=== PATIENT | female | born 1975 | race Caucasian/White ===

== ENCOUNTER 2017-02-02 23:07 | Inpatient (IN) | payer BC, OTHER ==
[2017-02-02 23:18] VITALS: BMI 42.9
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
[2017-02-03] MEDS ORDERED: IBUPROFEN 400 MG TABLET (FP) PO ONE ×3 (00:05→11:39)
[2017-02-03] MEDS ORDERED: ASPIRIN 81 MG CHEWABLE TABLETS PO ONE (00:32)
[2017-02-03 00:46] LABS: BASOPHIL 0.3 % (0-2.0); EOSINOPHIL 0.1 % (0-4.5); MCH 26.4 pg (25.7-33.7); MCHC 32.5 g/dl (32.0-36.0); MEAN CELL VOLUME 81.3 fl (80-96); MEAN PLT VOLUME 8.8 fl (7.5-11.1); NEUTROPHILS 88.7 % (42.8-82.8); PLATELET COUNT 214 K/MM3 (134-434); RDW 12.8 % (11.6-15.6); WHITE BLOOD COUNT 15.4 K/mm3 (4.0-10.0)
[2017-02-03 00:59] LABS: INR 1.08 (0.82-1.09); PROTHROMBIN TIME (PATIENT) 11.9 SEC (9.98-11.88)
[2017-02-03 01:29] LABS: ANION GAP 12 (8-16); BILIRUBIN,TOTAL 0.6 mg/dL (0.2-1.0); CALCIUM 8.9 mg/dL (8.5-10.1); CO2 29 mmol/L (21-32); COCKROFT - GAULT 119.2635; CREATININE 1.1 mg/dL (0.55-1.02); GLUCOSE,RANDOM 105 mg/dL (74-106); MAGNESIUM 2.2 mg/dL (1.8-2.4); SGOT/AST 111 U/L (15-37); SGPT/ALT 125 U/L (12-78); TOT PROT 7.7 g/dl (6.4-8.2)
[2017-02-03 01:32] LABS: ALK PHOS 193 U/L (45-117); TROPONIN I < 0.02 ng/ml (0.00-0.05)
[2017-02-03] MEDS ORDERED: POTASSIUM CHLORIDE TABS 20 MEQ TABLET.ER (FP) PO ONE ×2 (01:42→02:19)
[2017-02-03] MEDS ORDERED: SODIUM CHLORIDE 1,000 ML IV STA (01:46)
[2017-02-03] MEDS ORDERED: ASPIRIN 81 MG CHEWABLE TABLETS ONE (02:19)
[2017-02-03] MEDS ORDERED: MAGNESIUM SULF 50% (8.12 MEQ/2 ML-1 GM VIAL) IVPB ONE (03:02)
[2017-02-03] MEDS: KCL 10 MEQ IVPB 100 ML IVPB SCH ×3 (03:33→08:10)
[2017-02-03] MEDS ORDERED: MAGNESIUM SULF 50% (8.12 MEQ/2 ML-1 GM VIAL) ONE (03:33)
[2017-02-03] MEDS ORDERED: KCL 10 MEQ IVPB 100 ML IVPB ONE ×3 (03:33→07:56)
[2017-02-03 06:59] LABS: URINE APPEARANCE CLEAR; URINE BILIRUBIN NEGATIVE (NEGATIVE); URINE BLOOD NEGATIVE (NEGATIVE); URINE COLOR LTYELLOW; URINE GLUCOSE (UA) NEGATIVE (NEGATIVE); URINE KETONE NEGATIVE (NEGATIVE); URINE LEUK ESTERASE NEGATIVE (NEGATIVE); URINE NITRITE NEGATIVE (NEGATIVE); URINE PROTEIN NEGATIVE (NEGATIVE); URINE UROBILINOGEN 2.0 E.U/dl E.U./dl (0.2-1.0)
--- NOTE | 2017-02-03 13:31 | EKG ---
Test Reason : Blood Pressure : / mmHG Vent. Rate : 084 BPM Atrial Rate : 084 BPM P-R Int : 146 ms QRS Dur : 090 ms QT Int : 350 ms P-R-T Axes : 043 073 111 degrees QTc Int : 413 ms NORMAL SINUS RHYTHM POSSIBLE LEFT ATRIAL ENLARGEMENT T WAVE ABNORMALITY, CONSIDER INFEROLATERAL ISCHEMIA ABNORMAL ECG WHEN COMPARED WITH ECG OF 24-JAN-2014 10:43, T WAVE INVERSION NOW EVIDENT IN LATERAL LEADS VENT. RATE HAS INCREASED Confirmed by NASH VAUGHAN MD ([id number]) on 02/03/2017 1:31:36 PM Referred By: Confirmed By:NASH VAUGHAN MD
[2017-02-03] MEDS ORDERED: ACETAMINOPHEN 500 MG TABLET (FP) PO ONE (17:26)
[2017-02-03] MEDS ORDERED: AMPICILLIN NA/SULBACTAM NA 3 GM in SODIUM CHLORIDE 100 ML IVPB STA (17:27)
[2017-02-03] MEDS ORDERED: DEXAMETHASONE SOD PHOSPHATE 10 MG/1 ML VIAL IVPB ONE (17:33)
[2017-02-03] MEDS ORDERED: ACETAMINOPHEN 325 MG TABLET (FP) ONE (18:00)
[2017-02-03] MEDS ORDERED: DEXAMETHASONE SOD PHOSPHATE 10 MG/1 ML VIAL ONE (18:00)
[2017-02-03] MEDS ORDERED: ONDANSETRON 4 MG/2 ML VIAL IVPB PRN (18:10)
[2017-02-03] MEDS: KETOROLAC TROMETHAMINE 30 MG/1 ML VIAL IVPUSH SCH (18:38)
[2017-02-03] MEDS: AMPICILLIN NA/SULBACTAM NA 3 GM in SODIUM CHLORIDE 100 ML IVPB SCH ×2 (18:38→23:30)
[2017-02-03] MEDS: DEXTROSE 5%-NORMAL SALINE 1,000 ML IV SCH (18:39)
--- NOTE | 2017-02-03 18:58 | CON.GI ---
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 She is admitted with severe streptococcus infection of the pharynx. - History Source History Provided By: Patient - Past Medical History ...LMP: 11/10/15 - Alcohol/Substance Use Hx Alcohol Use: No - Smoking History Smoking history: Former smoker Have you smoked in the past 12 months: Yes Aproximately how many cigarettes per day: 10 Home Medications - Allergies Allergies/Adverse Reactions: Allergies Allergy/AdvReac Type Severity Reaction Status Date / Time No Known Allergies Allergy Verified 07/07/16 12:51 - Home Medications Home Medications: Ambulatory Orders Methotrexate [Mexate -] 2.5 mg PO BID 01/24/14 Zolpidem Tartrate [Ambien] 10 mg PO HS 01/24/14 Folic Acid 1 mg PO DAILY 11/25/15 Oxycodone HCl/Acetaminophen [Percocet 10-325 mg Tablet] 1 - 2 tab PO TID PRN # 10 tablet 11/25/15 Physical Exam-GI Vital Signs: Vital Signs Temperature 98.1 F 02/03/17 12:07 Pulse Rate 70 02/03/17 12:07 Respiratory Rate 18 02/03/17 12:07 Blood Pressure 106/52 02/03/17 12:07 O2 Sat by Pulse Oximetry (%) 98 02/03/17 12:07 Constitutional: Yes: Well Nourished Eyes: Yes: Conjunctiva Clear HENT: Yes: Atraumatic Neck: Yes: Trachea Midline Cardiovascular: Yes: Regular Rate and Rhythm Respiratory: Yes: CTA Bilaterally ...Palpate: Yes: Pulsatile Mass, Soft. No: Firm/Rigid, Guarding, Hepatomegaly, Mass, Splenomegaly, Tenderness Labs: INR, PTT INR 1.08 (0.82-1.09) 02/03/17 00:35 Imaging - Results Ultrasound: Report Reviewed (right lobe neoplasm) Problem List - Problems (1) Neoplasm Assessment/Plan: R< alphafetoprotein, hepatitis profile triphase catscan of the liver Code(s): D49.9 - NEOPLASM OF UNSPECIFIED BEHAVIOR OF UNSPECIFIED SITE
[2017-02-03] MEDS ORDERED: KETOROLAC TROMETHAMINE 30 MG/1 ML VIAL ONE (18:59)
[2017-02-03 19:12] LABS: BASOPHIL 0.3 % (0-2.0); EOSINOPHIL 0.1 % (0-4.5); MCH 26.4 pg (25.7-33.7); MCHC 31.8 g/dl (32.0-36.0); MEAN CELL VOLUME 83.1 fl (80-96); MEAN PLT VOLUME 9.8 fl (7.5-11.1); NEUTROPHILS 83.6 % (42.8-82.8); PLATELET COUNT 170 K/MM3 (134-434)
[2017-02-03 19:24] LABS: ALBUMIN 3.3 g/dl (3.4-5.0); ANION GAP 11 (8-16); BILIRUBIN,TOTAL 0.4 mg/dL (0.2-1.0); CALCIUM 7.7 mg/dL (8.5-10.1); CO2 21 mmol/L (21-32); COCKROFT - GAULT 163.9905; CREATININE 0.8 mg/dL (0.55-1.02); GLUCOSE,RANDOM 80 mg/dL (74-106); SGOT/AST 57 U/L (15-37); SGPT/ALT 107 U/L (12-78); TOT PROT 6.8 g/dl (6.4-8.2)
[2017-02-03 19:25] LABS: ALK PHOS 156 U/L (45-117)
--- NOTE | 2017-02-03 21:17 | HP ---
Admitting History and Physical - Primary Care Physician PCP: Sandra Henley - Admission Chief Complaint: THROAT PAIN/FEVER/ACHES History of Present Illness: Patient is a 41 year old female with a significant past medical history of rheumatoid arthritis, htn, lasix, hld, NIDDM, and hypothyroidism who presents to the ED with sore throat, difficulty swallowing, headache since this morning. Patient states that she woke up this morning with a headache and difficulty swallowing. Patient notes that has been taking advil for the pain, last dose 6 PM. History Source: Patient, Medical Record - Past Medical History ...LMP: 11/10/15 Rheumatology: Yes: Rheumatoid Arthritis Endocrine: Yes: Diabetes Mellitus - Smoking History Smoking history: Former smoker Have you smoked in the past 12 months: Yes Aproximately how many cigarettes per day: 10 - Alcohol/Substance Use Hx Alcohol Use: No Home Medications - Allergies Allergies/Adverse Reactions: Allergies Allergy/AdvReac Type Severity Reaction Status Date / Time No Known Allergies Allergy Verified 07/07/16 12:51 - Home Medications Home Medications: Ambulatory Orders Methotrexate [Mexate -] 2.5 mg PO BID 01/24/14 Zolpidem Tartrate [Ambien] 10 mg PO HS 01/24/14 Folic Acid 1 mg PO DAILY 11/25/15 Oxycodone HCl/Acetaminophen [Percocet 10-325 mg Tablet] 1 - 2 tab PO TID PRN # 10 tablet 11/25/15 Review of Systems - Review of Systems Constitutional: reports: Weakness Eyes: reports: No Symptoms HENT: reports: Throat Pain Neck: reports: Swollen Glands Cardiovascular: reports: No Symptoms Respiratory: reports: Cough Gastrointestinal: reports: No Symptoms Genitourinary: reports: No Symptoms Musculoskeletal: reports: No Symptoms Integumentary: reports: No Symptoms Neurological: reports: No Symptoms Endocrine: reports: No Symptoms Hematology/Lymphatic: reports: No Symptoms Psychiatric: reports: No Symptoms Physical Examination Vital Signs: Vital Signs Temperature 98.1 F 02/03/17 12:07 Pulse Rate 70 02/03/17 12:07 Respiratory Rate 18 02/03/17 12:07 Blood Pressure 106/52 02/03/17 12:07 O2 Sat by Pulse Oximetry (%) 98 02/03/17 12:07 Constitutional: Yes: Moderate Distress Eyes: Yes: WNL HENT: Yes: Hoarseness, Pharyngeal Erythema Neck: Yes: Tenderness Respiratory: Yes: WNL Gastrointestinal: Yes: WNL Musculoskeletal: Yes: Muscle Weakness Edema: No Peripheral Pulses WNL: Yes Integumentary: Yes: WNL Wound/Incision: Yes: Clean/Dry Neurological: Yes: WNL ...Motor Strength: WNL Psychiatric: Yes: WNL Labs: CBC, BMP 02/03/17 18:49 02/03/17 18:49 Imaging - Results Chest X-ray: Report Reviewed Cat Scan: Report Reviewed Ultrasound: Report Reviewed Problem List - Problems (1) Pharyngitis Code(s): J02.9 - ACUTE PHARYNGITIS, UNSPECIFIED Qualifiers: Pharyngitis/tonsillitis etiology: streptococcus Qualified Code(s): J02.0 - Streptococcal pharyngitis (2) Viral illness Code(s): B34.9 - VIRAL INFECTION, UNSPECIFIED (3) Liver mass Code(s): R16.0 - HEPATOMEGALY, NOT ELSEWHERE CLASSIFIED (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
[2017-02-04] MEDS: KETOROLAC TROMETHAMINE 30 MG/1 ML VIAL IVPUSH SCH ×3 (03:22→17:03)
[2017-02-04] MEDS: DEXTROSE 5%-NORMAL SALINE 1,000 ML IV SCH ×2 (03:23→20:54)
[2017-02-04] MEDS: AMPICILLIN NA/SULBACTAM NA 3 GM in SODIUM CHLORIDE 100 ML IVPB SCH ×4 (03:23→20:52)
[2017-02-04] MEDS: DEXAMETHASONE SOD PHOSPHATE 10 MG/1 ML VIAL IVPB SCH ×3 (04:04→17:07)
[2017-02-04] MEDS ORDERED: PANTOPRAZOLE SODIUM 40 MG/100 ML PRE-DOCKED IVPB ONE (06:30)
[2017-02-04 08:03] LABS: MCH 26.8 pg (25.7-33.7); MCHC 32.4 g/dl (32.0-36.0); MEAN CELL VOLUME 82.7 fl (80-96); MEAN PLT VOLUME 9.7 fl (7.5-11.1); PLATELET COUNT 166 K/MM3 (134-434); RDW 13.4 % (11.6-15.6); WHITE BLOOD COUNT 15.3 K/mm3 (4.0-10.0)
[2017-02-04 08:48] LABS: ALK PHOS 132 U/L (45-117); ANION GAP 10 (8-16); BILIRUBIN,TOTAL 0.2 mg/dL (0.2-1.0); CALCIUM 7.8 mg/dL (8.5-10.1); CHOLESTEROL 152 mg/dL (50-200); CO2 22 mmol/L (21-32); COCKROFT - GAULT 163.9905; CREATININE 0.8 mg/dL (0.55-1.02); GLUCOSE,RANDOM 135 mg/dL (74-106); LDL CHOLESTEROL (ONLY SJRH) 66 mg/dL (5-100); SGOT/AST 31 U/L (15-37); SGPT/ALT 80 U/L (12-78); TOT PROT 6.3 g/dl (6.4-8.2)
--- NOTE | 2017-02-04 10:44 | CONSULT ---
Consultation: REQUESTING PROVIDER: CONSULT REQUEST: We have been asked to medically evaluate this patient for ( pulmonology). HISTORY OF PRESENT ILLNESS: 41 y/o female with past medical hhistory of htn, ra , lasix, DM, hypothyroidism came to hospital with a complain of sorethroat, headache, difficulty in swallowing. Also states that she had chills yesterday but denies fever. Patient also reports hosiness of voices since yesterday. States yesterday she has some difficulty in breathing but it has improved now. Denies contact with any person who has same complaints. Patient was diagnosed with strep throat and was started on Iv ampicillin. Patient states that she is feeling slight better than yesterday. no difficulty in breathing on pain control with toradol on iv antibiotics on iv steroid 10mg q8h REVIEW OF SYSTEMS: CONSTITUTIONAL: Absent: fever, chills, diaphoresis, HEENT: Absent: rhinorrhea, nasal congestion, throat pain, throat swelling, difficulty swallowing, headache CARDIOVASCULAR: Absent: chest pain, syncope, palpitations, irregular heart rate, lightheadedness , peripheral edema RESPIRATORY: Absent: cough, shortness of breath, dyspnea with exertion, GASTROINTESTINAL: Absent: abdominal pain, abdominal distension, nausea, vomiting, GENITOURINARY: Absent: dysuria, frequency, urgency, hesitancy, NEUROLOGIC: Absent: headache, focal weakness or paresthesias, PHYSICAL EXAMINATION Vital Signs - 24 hr 02/03/17 02/03/17 02/04/17 12:07 23:49 00:45 Temperature 98.1 F 98.9 F 99.0 F Pulse Rate 72 Pulse Rate [ 70 64 Right Apical] Respiratory 18 18 20 Rate Blood Pressure 124/73 Blood Pressure 106/52 118/64 [Right Arm] O2 Sat by Pulse 98 100 Oximetry (%) 02/04/17 02/04/17 03:44 06:00 Temperature 98.5 F Pulse Rate 50 L Pulse Rate [ Right Apical] Respiratory 20 Rate Blood Pressure 126/63 Blood Pressure [Right Arm] O2 Sat by Pulse 99 Oximetry (%) GENERAL: Awake, alert, and fully oriented, HEAD: Normal with no signs of trauma. NECK: Normal range of motion, pharyngeal erythema, b/l enlarged tonisils, LUNGS: Breath sounds equal, clear to auscultation bilaterally. No wheezes, and no crackles. No accessory muscle use. HEART: s1s2 n ABDOMEN: Soft, nontender, not distended, normoactive bowel sounds, UPPER EXTREMITIES: 2+ pulses, warm, well-perfused. No cyanosis. No clubbing. LOWER EXTREMITIES warm, well-perfused. No calf tenderness. No peripheral edema. SKIN: Warm, dry, Laboratory Results - last 24 hr 02/03/17 02/03/17 02/04/17 18:49 18:49 06:43 WBC 17.0 H 15.3 H RBC 4.01 3.61 Hgb 10.6 L 9.7 L Hct 33.3 29.9 L MCV 83.1 82.7 MCHC 31.8 L 32.4 RDW 13.0 13.4 Plt Count 170 D 166 MPV 9.8 D 9.7 Neutrophils % 83.6 H Lymphocytes % 10.5 D Monocytes % 5.5 Eosinophils % 0.1 Basophils % 0.3 Sodium 142 Potassium 4.0 D Chloride 110 H D Carbon Dioxide 21 D Anion Gap 11 BUN 11 D Creatinine 0.8 D Creat Clearance w eGFR > 60 POC Glucometer Random Glucose 80 D Calcium 7.7 L Total Bilirubin 0.4 D AST 57 H D ALT 107 H Alkaline Phosphatase 156 H Total Protein 6.8 Albumin 3.3 L Triglycerides Cholesterol Total LDL Cholesterol HDL Cholesterol 02/04/17 02/04/17 06:43 06:50 WBC RBC Hgb Hct MCV MCHC RDW Plt Count MPV Neutrophils % Lymphocytes % Monocytes % Eosinophils % Basophils % Sodium 143 Potassium 3.9 Chloride 111 H Carbon Dioxide 22 Anion Gap 10 BUN 14 D Creatinine 0.8 Creat Clearance w eGFR > 60 POC Glucometer 151 Random Glucose 135 H D Calcium 7.8 L Total Bilirubin 0.2 D AST 31 D ALT 80 H D Alkaline Phosphatase 132 H Total Protein 6.3 L Albumin 3.0 L Triglycerides 70 Cholesterol 152 Total LDL Cholesterol 66 HDL Cholesterol 55 Active Medications Generic Name Dose Route Start Last Admin Trade Name Freq PRN Reason Stop Dose Admin Dexamethasone Sodium Phosphate 10 mg 02/04/17 02:00 02/04/17 04:04 Decadron Injection - IVPB 10 mg Q8H-IV MIRIAM Administration Ampicillin Sodium/Sulbactam 100 mls @ 200 mls/hr 02/03/17 18:15 02/04/17 03:23 Sodium 3 gm/ Sodium Chloride IVPB 200 mls/hr Q6H-IV MIRIAM Administration Dextrose/Sodium Chloride 1,000 mls @ 83 mls/hr 02/03/17 18:15 02/04/17 03:23 D5-Ns - IV 83 mls/hr ASDIR MIRIAM Administration Ketorolac Tromethamine 30 mg 02/03/17 18:15 02/04/17 03:22 Toradol Injection - IVPUSH 02/08/17 18:14 30 mg Q8H-IV MIRIAM Administration Ondansetron HCl 8 mg 02/03/17 18:10 Zofran Injection IVPB Q6H PRN NAUSEA ASSESSMENT/PLAN: acute pharyngitis h/o htn h/o RA h/o hypothyroidism h/o DM liver mass plan antibiotics as per id, on iv ampicillin pain control on iv toradol on iv fluid on iv decadron 10mg q8h gi evalutaion for liver mass r/o tonisllar abscess Dispo: We will continue to follow the patient. Thank you for this consultative opportunity. Visit type - Emergency Visit Emergency Visit: Yes ED Registration Date: 02/03/17 Care time: The patient presented to the Emergency Department on the above date and was hospitalized for further evaluation of their emergent condition. - New Patient This patient is new to me today: Yes Date on this admission: 02/04/17 - Critical Care Critical Care patient: No
--- NOTE | 2017-02-04 11:21 | PN ---
Progress Note (short form) - Note Progress Note: ID consult dictated imp/reccd group A strep Pharyngitis r/o peritonsillar abscess history of RA- on no meds continue unasyn and steroids awaiting ENT evaluation
[2017-02-04] MEDS ORDERED: PT OWN MED DRAWER 7, Y5N ONE ×2 (15:18→16:49)
--- NOTE | 2017-02-04 15:52 | PN ---
Teaching Attending Note Name of Resident: Reymundo Marley ATTENDING PHYSICIAN STATEMENT I saw and evaluated the patient. I reviewed the resident's note and discussed the case with the resident. I agree with the resident's findings and plan as documented. Alexander FUENTES MD
[2017-02-04 18:55] LABS: ERYTHROCYTE SEDIMENTATION RATE 91 mm/hr (0-20)
--- NOTE | 2017-02-04 20:20 | PN ---
Progress Note, Physician Chief Complaint: awake alert comfortable denies chest pain no sob - Current Medication List Current Medications: Active Medications Dexamethasone Sodium Phosphate (Decadron Injection -) 10 mg IVPB Q8H-IV MIRIAM Last Admin: 02/04/17 17:07 Dose: 10 mg Ampicillin Sodium/Sulbactam (Sodium 3 gm/ Sodium Chloride) 100 mls @ 200 mls/ hr IVPB Q6H-IV MIRIAM Last Admin: 02/04/17 15:28 Dose: 200 mls/hr Dextrose/Sodium Chloride (D5-Ns -) 1,000 mls @ 83 mls/hr IV ASDIR MIRIAM Last Admin: 02/04/17 03:23 Dose: 83 mls/hr Ketorolac Tromethamine (Toradol Injection -) 30 mg IVPUSH Q8H-IV MIRIAM Stop: 02/08/17 18:14 Last Admin: 02/04/17 17:03 Dose: 30 mg Ondansetron HCl (Zofran Injection) 8 mg IVPB Q6H PRN PRN Reason: NAUSEA - Objective Vital Signs: Vital Signs Temperature 98.4 F 02/04/17 17:00 Pulse Rate 43 L 02/04/17 17:00 Respiratory Rate 20 02/04/17 17:00 Blood Pressure 114/57 02/04/17 17:00 O2 Sat by Pulse Oximetry (%) 99 02/04/17 09:00 Constitutional: Yes: No Distress Eyes: Yes: WNL HENT: Yes: Hoarseness, Pharyngeal Erythema Neck: Yes: Tenderness Cardiovascular: Yes: Bradycardia Respiratory: Yes: WNL Gastrointestinal: Yes: WNL Genitourinary: Yes: WNL Musculoskeletal: Yes: WNL Extremities: Yes: WNL Edema: No Peripheral Pulses WNL: Yes Integumentary: Yes: WNL Wound/Incision: Yes: Clean/Dry Neurological: Yes: WNL ...Motor Strength: WNL Psychiatric: Yes: WNL Labs: CBC, BMP 02/04/17 06:43 02/04/17 06:43 INR, PTT INR 1.08 (0.82-1.09) 02/03/17 00:35 Problem List - Problems (1) Pharyngitis Code(s): J02.9 - ACUTE PHARYNGITIS, UNSPECIFIED Qualifiers: Pharyngitis/tonsillitis etiology: streptococcus Qualified Code(s): J02.0 - Streptococcal pharyngitis (2) Viral illness Code(s): B34.9 - VIRAL INFECTION, UNSPECIFIED (3) Liver mass Code(s): R16.0 - HEPATOMEGALY, NOT ELSEWHERE CLASSIFIED (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
--- NOTE | 2017-02-04 22:01 | CONS ---
DATE OF CONSULTATION: DATE OF DICTATION: 02/04/2017 REQUESTED BY: Sandra Henley MD This is a 41-year-old woman with a past medical history of rheumatoid arthritis, hypertension, hyperlipidemia, bxo-[id number]-[id number] diabetes, who presented on the with sore throat, difficulty swallowing, and headache that had started that morning. She denies any fevers or chills. There was no nausea, vomiting, diarrhea, or constipation. She presented to the emergency room with these complaints. In the ER, she was noted to have a white count of 15.4, a potassium of 2.7. She was noted to have large erythematous tonsils. She ultimately had a throat culture sent. The Rapid Strep screen was negative. She was admitted for her hypokalemia. This morning she was noted to have a positive group A streptococcus culture. She was started on the on Unasyn and Decadron. She had a CAT scan of her neck done showed enlarged tonsils, soft tissue of her neck, with asymmetric tonsils, with the right tonsil larger than the left. There was no discrete abscess, however, peritonsillar abscess could not be ruled out. Asked to see her to comment on this. She is feeling much better this morning. Her swallowing is still difficult but has improved. Past medical history is notable for rheumatoid arthritis. She is currently on no medication for this. She used to take methotrexate, which she stopped a while back. Currently she is not seeing a dental hygiene administrative assistant. She also has a history of hypertension, hyperlipidemia, and non-insulin diabetes. She has no known drug allergies. Her medications at home include Ambien and pain medication. Family history is noncontributory. She lives at home with her daughter. She has no sick contacts. No one has been sick at home. She is a former smoker; she stopped 3 months ago. No history of any substance use. Review of systems is notable for weakness and swollen glands and throat discomfort. She has no shortness of breath, chest pain, or abdominal pain. PHYSICAL EXAMINATION: General: She is a pleasant woman in no acute distress. Vital Signs: She is afebrile, temperature is 98.5. Pulse of 50. Blood pressure is 126/63. Respiratory rate of 20. She is saturating 99% on room air. HEENT: She is normocephalic. Her eyes are anicteric. She has enlarged tonsils, right greater than left, but no evidence of any exudates. Neck: Supple. She has some shotty lymphadenopathy. Heart: Regular rate and rhythm. Lungs: Clear to auscultation. Skin: She has no rash. Abdomen: Soft, nontender. Extremities: Without edema. White count on the 8th was 15.4, today is 15.3. Hemoglobin is 9.7, platelets are 166. On admission, BUN 20 and creatinine 1.1, with a potassium of 2.7. Today potassium is 3.9, BUN 14, and creatinine 0.8. Liver function tests were elevated on admission with AST of 111, ALT of 125, alkaline phosphatase 193. Today, AST of 31, ALT of 80, with an alkaline phosphatase of 132. Urinalysis is negative. Throat culture is positive for group A streptococcus. Blood culture is negative in 24 hours. In summary, this is a 41-year-old woman with group A streptococcus pharyngitis with possible peritonsillar abscess, history of rheumatoid arthritis, on no medications. Would continue Unasyn and steroids and await ENT evaluation. 2. Abnormal liver function tests. She has had a workup that included sonogram and CAT scan that were notable for hemangioma. LFTs appear to be improving and they all have been due to her acute pharyngitis. Would continue her presently on her IV antibiotics and await ENT followup. When cleared for discharge, would probably be able to send her home on Augmentin. Will follow with you. SERVANDO BA M.D. [id number]
[2017-02-05] MEDS: KETOROLAC TROMETHAMINE 30 MG/1 ML VIAL IVPUSH SCH ×3 (01:11→17:32)
[2017-02-05] MEDS: DEXAMETHASONE SOD PHOSPHATE 10 MG/1 ML VIAL IVPB SCH ×3 (02:02→17:33)
[2017-02-05] MEDS: AMPICILLIN NA/SULBACTAM NA 3 GM in SODIUM CHLORIDE 100 ML IVPB SCH ×4 (02:44→21:01)
[2017-02-05] MEDS ORDERED: PT OWN MED DRAWER 7, Y5N ONE ×2 (09:05→14:44)
--- NOTE | 2017-02-05 10:50 | PN ---
Teaching Attending Note Name of Resident: Reymundo Marley ATTENDING PHYSICIAN STATEMENT I saw and evaluated the patient. I reviewed the resident's note and discussed the case with the resident. I agree with the resident's findings and plan as documented. 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
[2017-02-05 11:25] LABS: CALCIUM 8.1 mg/dL (8.5-10.1); COCKROFT - GAULT 163.9905; CREATININE 0.8 mg/dL (0.55-1.02)
--- NOTE | 2017-02-05 13:29 | EKG ---
Test Reason : Blood Pressure : / mmHG Vent. Rate : 043 BPM Atrial Rate : 043 BPM P-R Int : 146 ms QRS Dur : 090 ms QT Int : 480 ms P-R-T Axes : 061 076 063 degrees QTc Int : 405 ms MARKED SINUS BRADYCARDIA ABNORMAL ECG WHEN COMPARED WITH ECG OF 03-FEB-2017 00:22, VENT. RATE HAS DECREASED BY 41 BPM T WAVE INVERSION NO LONGER EVIDENT IN INFERIOR LEADS T WAVE INVERSION NO LONGER EVIDENT IN LATERAL LEADS Confirmed by MELA CARRERO MD ([id number]) on 02/05/2017 1:29:01 PM Referred By: Viji LUCIANO Confirmed By:MELA CARRERO MD
--- NOTE | 2017-02-05 13:58 | PN ---
Progress Note (short form) - Note Progress Note: feels better, less pain with swallowing on soft foods Vital Signs Period Temp Pulse Resp BP Sys/Michel Pulse Ox Last 24 Hr 98 F-98.5 F 42-79 18-22 114-137/51-76 98-99 cor-rrr lungs clear abd soft,nt exxt no edema CBC, BMP 02/04/17 06:43 02/05/17 05:35 Microbiology 02/03/17 03:17 Blood - Peripheral Venous Blood Culture - Preliminary NO GROWTH OBTAINED AFTER 48 HOURS, INCUBATION TO CONTINUE FOR 3 DAYS. 02/03/17 03:17 Blood - Peripheral Venous Blood Culture - Preliminary NO GROWTH OBTAINED AFTER 48 HOURS, INCUBATION TO CONTINUE FOR 3 DAYS. 02/03/17 06:53 Urine - Urine Clean Catch Urine Culture - Final NO GROWTH OBTAINED 02/03/17 00:15 Throat Throat Culture - Final Streptococcus Pyogenes Grp A 02/03/17 00:15 Throat Group A Strep Rapid Antigen - Final 02/03/17 17:44 Throat Throat Culture - Final Streptococcus Pyogenes Grp A 02/03/17 17:44 Throat Group A Strep Rapid Antigen - Final a/p group A strep Pharyngitis r/o peritonsillar abscess can transition to po augmentin and taper steroids if okay with ENT (ENT eval pending) please call back if needed history of RA- on no meds
--- NOTE | 2017-02-05 16:21 | CON.CARD ---
Consult Consult Specialty:: Cardiology Consult Referred by:: Dr. Henley Reason for Consultation:: Abnormal echocardiogram - History of Present Illness Chief Complaint: Throat discomfort History of Present Illness: This is a 41 year old female with a PMH significant for RA, HTN, HLD, DM2, and Hypothyroidism. She presented to the ER on 02/02/17 with the chief complaint of a sore throat and difficulty swallowing. This was accompanied by a head ache. EKG showed NSR with T wave abnormalities in the lateral leads. Potassium was 2.7 and WBC was noted to be 15.4. CXR was without acute infiltrates. She was diagnosed with acute pharyngitis and has improved on ABX. On 02/04/17 an EKG was performed and she was found to have marked sinus bradycardia at 43 BPM with improvement of the T wave abnormalities. Echocardiogram 02/05/17: EF 57.1% Normal LV size and function Mild to moderate RV dilatation with moderately reduced RV function Prominent RV trabeculations Moderate LA enlargement Severe right atrial dilatation Intra-atrial septal aneurysm noted Mild MR Moderate to severe TR RVSP 34.5 mmHg (this can be an underestimation secondary to Moderate to severe TR) - History Source History Provided By: Patient Limitations to Obtaining History: No Limitations - Past Medical History ...LMP: 01/06/17 ...: No Rheumatology: Yes: Rheumatoid Arthritis Endocrine: Yes: Diabetes Mellitus - Alcohol/Substance Use Hx Alcohol Use: No - Smoking History Smoking history: Former smoker Have you smoked in the past 12 months: Yes Aproximately how many cigarettes per day: 10 If you are a former smoker, when did you quit?: 3 mos ago Home Medications - Allergies Allergies/Adverse Reactions: Allergies Allergy/AdvReac Type Severity Reaction Status Date / Time No Known Allergies Allergy Verified 07/07/16 12:51 - Home Medications Home Medications: Ambulatory Orders Methotrexate [Mexate -] 2.5 mg PO BID 01/24/14 Zolpidem Tartrate [Ambien] 10 mg PO HS 01/24/14 Folic Acid 1 mg PO DAILY 11/25/15 Oxycodone HCl/Acetaminophen [Percocet 10-325 mg Tablet] 1 - 2 tab PO TID PRN # 10 tablet 11/25/15 Review of Systems Unable to obtain ROS, reason: As per HPI Vital Signs: Vital Signs Temperature 97.9 F 02/05/17 14:01 Pulse Rate 46 L 02/05/17 14:01 Respiratory Rate 20 02/05/17 14:01 Blood Pressure 127/79 02/05/17 14:01 O2 Sat by Pulse Oximetry (%) 98 02/05/17 09:00 Constitutional: Yes: No Distress Respiratory: Yes: CTA Bilaterally Gastrointestinal: Yes: Soft Cardiovascular: Yes: Regular Rate and Rhythm Heart Sounds: Yes: S1, S2 (1/6 HSM at the apex with respiratory variations) Extremities: Yes: WNL Edema: No Neurological: Yes: Alert, Oriented (Grossly non focal) - Other Data Labs, Other Data: CBC, BMP 02/04/17 06:43 02/05/17 05:35 INR, PTT INR 1.08 (0.82-1.09) 02/03/17 00:35 Assessment/Plan 41 year old female with a PMH significant for RA, HTN, HLD, DM2, and Hypothyroidism. She presented to the ER on 02/02/17 with the chief complaint of a sore throat and difficulty swallowing. This was accompanied by a head ache. EKG showed NSR with T wave abnormalities in the lateral leads. Potassium was 2.7 and WBC was noted to be 15.4. CXR was without acute infiltrates. She was diagnosed with acute pharyngitis and has improved on ABX. On 02/04/17 an EKG was performed and she was found to have marked sinus bradycardia at 43 BPM with improvement of the T wave abnormalities. Echocardiogram 02/05/17: EF 57.1% Normal LV size and function Mild to moderate RV dilatation with moderately reduced RV function Prominent RV trabeculations Moderate LA enlargement Severe right atrial dilatation Intra-atrial septal aneurysm noted Mild MR Moderate to severe TR RVSP 34.5 mmHg (this can be an underestimation secondary to Moderate to severe TR) Right Ventricular Hypokinesis: Rule PE, agree with obtaining a Chest CT scan with PE protocol Interestingly PE's (unless massive) are usually associated with tachycardia not bradycardia as in this case. The D-Dimer is positive and therefore would favor starting anticoagulation with Lovenox awaiting the CT scan results. Sinus Bradycardia: Avoid all AV loan medications Keep monitored on Telem Obtain TFT's Will follow with you
--- NOTE | 2017-02-05 19:58 | CON.ENT ---
Consult Consult Specialty:: ENT Referred by:: Dr. Henley Reason for Consultation:: throat infection - History of Present Illness Chief Complaint: throat pain History of Present Illness: 41 yo F admitted with throat pain hx intermittent throat infections, ocasional strep, not frequent or recent. states this infection the worst she has had, trouble talking and breathing since admission rx IV antibiotics and steroids feeling better, less pain, taking fluids, wants to eat more - History Source History Provided By: Patient, Medical Record Limitations to Obtaining History: No Limitations - Past Medical History ...LMP: 01/06/17 ...: No Rheumatology: Yes: Rheumatoid Arthritis Endocrine: Yes: Diabetes Mellitus - Alcohol/Substance Use Hx Alcohol Use: No - Smoking History Smoking history: Former smoker Have you smoked in the past 12 months: Yes Aproximately how many cigarettes per day: 10 If you are a former smoker, when did you quit?: 3 mos ago Home Medications - Allergies Allergies/Adverse Reactions: Allergies Allergy/AdvReac Type Severity Reaction Status Date / Time No Known Allergies Allergy Verified 07/07/16 12:51 - Home Medications Home Medications: Ambulatory Orders Methotrexate [Mexate -] 2.5 mg PO BID 01/24/14 Zolpidem Tartrate [Ambien] 10 mg PO HS 01/24/14 Folic Acid 1 mg PO DAILY 11/25/15 Oxycodone HCl/Acetaminophen [Percocet 10-325 mg Tablet] 1 - 2 tab PO TID PRN # 10 tablet 11/25/15 Physical Exam-ENT Vital Signs: Vital Signs Temperature 98.4 F 02/05/17 17:00 Pulse Rate 48 L 02/05/17 17:00 Respiratory Rate 20 02/05/17 17:00 Blood Pressure 135/57 02/05/17 17:00 O2 Sat by Pulse Oximetry (%) 98 02/05/17 09:00 Constitutional: Yes: Well Nourished, Calm, Obese Head: Yes: WNL Face: Yes: WNL Eyes: Yes: WNL Nose: Yes: Septum Deviated, Other (right ala pierced with ornament) Nasal Passage: Yes: WNL Oral/Pharynx: Yes: Enlarged Tonsils (no trismus, tonsils enlarged right greater than left, uvula midline, NO evidence of peritonsillar abscess, no exudate or erythema, voice clear and strong, not hot potato, no stridor or respiratory distress) Outer Ear: Yes: WNL Ear Canal: Yes: WNL Tympanic Membrane: Yes: WNL Neck: Yes: Other (small nodes level 2, minimally tender) Respiratory: Yes: WNL Imaging - Results Chest X-ray: Report Reviewed Cat Scan: Report Reviewed, Image Reviewed Problem List - Problems (1) Pharyngitis Assessment/Plan: acute tonsillopharyngitis markedly improved with IV antibiotics and steroids tonsils enlarged, no abscess Recommend: diet as tolerated no surgical intervention indicated continue antibiotics, consider change to po when OK with ID Ok for discharge when meets criteria Thank you for consultation, Floyd Hirsch MD FACS Code(s): J02.9 - ACUTE PHARYNGITIS, UNSPECIFIED Qualifiers: Pharyngitis/tonsillitis etiology: streptococcus Qualified Code(s): J02.0 - Streptococcal pharyngitis
--- NOTE | 2017-02-05 22:19 | PN ---
Progress Note, Physician Chief Complaint: CHART AND EVENTS REVIWED CTA NEG FOR PE BRADYCARDIA CONTINUES SEVERE MR ON ECHO - Current Medication List Current Medications: Active Medications Dexamethasone Sodium Phosphate (Decadron Injection -) 10 mg IVPB Q8H-IV MIRIAM Last Admin: 02/05/17 17:33 Dose: 10 mg Ampicillin Sodium/Sulbactam (Sodium 3 gm/ Sodium Chloride) 100 mls @ 200 mls/ hr IVPB Q6H-IV MIRIAM Last Admin: 02/05/17 21:01 Dose: 200 mls/hr Dextrose/Sodium Chloride (D5-Ns -) 1,000 mls @ 83 mls/hr IV ASDIR MIRIAM Last Admin: 02/04/17 20:54 Dose: 83 mls/hr Ketorolac Tromethamine (Toradol Injection -) 30 mg IVPUSH Q8H-IV MIRIAM Stop: 02/08/17 18:14 Last Admin: 02/05/17 17:32 Dose: 30 mg Ondansetron HCl (Zofran Injection) 8 mg IVPB Q6H PRN PRN Reason: NAUSEA - Objective Vital Signs: Vital Signs Temperature 98.9 F 02/05/17 21:04 Pulse Rate 52 L 02/05/17 21:04 Respiratory Rate 21 02/05/17 21:04 Blood Pressure 148/90 02/05/17 21:04 O2 Sat by Pulse Oximetry (%) 100 02/05/17 20:26 Constitutional: Yes: Mild Distress Eyes: Yes: WNL HENT: Yes: Pharyngeal Erythema Neck: Yes: Tenderness Cardiovascular: Yes: Bradycardia Respiratory: Yes: WNL Gastrointestinal: Yes: WNL Genitourinary: Yes: WNL Musculoskeletal: Yes: WNL Extremities: Yes: WNL Edema: No Peripheral Pulses WNL: Yes Integumentary: Yes: WNL Wound/Incision: Yes: Clean/Dry Neurological: Yes: WNL ...Motor Strength: WNL Psychiatric: Yes: WNL Labs: CBC, BMP 02/04/17 06:43 02/05/17 05:35 INR, PTT INR 1.08 (0.82-1.09) 02/03/17 00:35 Problem List - Problems (1) Pharyngitis Code(s): J02.9 - ACUTE PHARYNGITIS, UNSPECIFIED Qualifiers: Pharyngitis/tonsillitis etiology: streptococcus Qualified Code(s): J02.0 - Streptococcal pharyngitis (2) Viral illness Code(s): B34.9 - VIRAL INFECTION, UNSPECIFIED (3) Liver mass Code(s): R16.0 - HEPATOMEGALY, NOT ELSEWHERE CLASSIFIED (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
[2017-02-05] MEDS: DEXTROSE 5%-NORMAL SALINE 1,000 ML IV SCH (22:35)
[2017-02-06] MEDS: KETOROLAC TROMETHAMINE 30 MG/1 ML VIAL IVPUSH SCH ×3 (01:15→18:14)
[2017-02-06] MEDS: AMPICILLIN NA/SULBACTAM NA 3 GM in SODIUM CHLORIDE 100 ML IVPB SCH ×4 (02:21→21:57)
[2017-02-06] MEDS ORDERED: PT OWN MED DRAWER 7, Y5N ONE ×3 (08:12→21:44)
--- NOTE | 2017-02-06 09:14 | PN ---
Physical Exam: SUBJECTIVE: Patient seen and examined Patient feels better, denies sob, cough. fever, chills. Patient accepting oral liquid and po diet. OBJECTIVE: Vital Signs Period Temp Pulse Resp BP Sys/Michel Pulse Ox Last 24 Hr 97.7 F-98.9 F 41-52 18-22 127-151/57-90 100 GENERAL: Awake, alert, and fully oriented, HEAD: Normal with no signs of trauma. NECK: Normal range of motion, b/l enlarged tonisils, R>L, erythema decreased, no exudate, mucuc membrane moist LUNGS: Breath sounds equal, clear to auscultation bilaterally. No wheezes, and no crackles. No accessory muscle use. HEART: s1s2 n ABDOMEN: Soft, nontender, not distended, normoactive bowel sounds, UPPER EXTREMITIES: 2+ pulses, warm, well-perfused. No cyanosis. LOWER EXTREMITIES warm, well-perfused. No calf tenderness. edema present on b/l foot and ankle. SKIN: Warm, Laboratory Results - last 24 hr 02/05/17 02/05/17 02/05/17 05:35 06:00 11:43 D-Dimer Sodium 145 Potassium 3.6 Chloride 109 H Carbon Dioxide 22 Anion Gap 14 BUN 17 D Creatinine 0.8 POC Glucometer 154 Random Glucose 152 H Calcium 8.1 L TSH 0.23 L Free T4 1.03 02/05/17 02/05/17 02/05/17 13:50 15:33 21:50 D-Dimer 453 H Sodium Potassium Chloride Carbon Dioxide Anion Gap BUN Creatinine POC Glucometer 146 167 Random Glucose Calcium TSH Free T4 Active Medications Generic Name Dose Route Start Last Admin Trade Name Rodq PRN Reason Stop Dose Admin Ampicillin Sodium/Sulbactam 100 mls @ 200 mls/hr 02/03/17 18:15 02/06/17 02:21 Sodium 3 gm/ Sodium Chloride IVPB 200 mls/hr Q6H-IV MIRIAM Administration Dextrose/Sodium Chloride 1,000 mls @ 83 mls/hr 02/03/17 18:15 02/05/17 22:35 D5-Ns - IV 83 mls/hr ASDIR MIRIAM Administration Ketorolac Tromethamine 30 mg 02/03/17 18:15 02/06/17 01:15 Toradol Injection - IVPUSH 02/08/17 18:14 30 mg Q8H-IV MIRIAM Administration Ondansetron HCl 8 mg 02/03/17 18:10 Zofran Injection IVPB Q6H PRN NAUSEA Pantoprazole Sodium 40 mg 02/06/17 10:00 Protonix - PO DAILY MIRIAM Prednisone 30 mg 02/06/17 10:00 Deltasone - PO DAILY MIRIAM ASSESSMENT/PLAN: acute pharyngitis h/o htn h/o RA h/o hypothyroidism h/o DM liver mass plan antibiotics as per id, pain control on iv toradol on iv fluid Taper steroid, on prednisone 30mg CTA chest: no PE, gi,ent consult appreciated. Visit type - Emergency Visit Emergency Visit: Yes ED Registration Date: 02/03/17 Care time: The patient presented to the Emergency Department on the above date and was hospitalized for further evaluation of their emergent condition. - New Patient This patient is new to me today: No - Critical Care Critical Care patient: No
[2017-02-06] MEDS: PANTOPRAZOLE 40 MG TABLET (FP) PO SCH (09:57)
[2017-02-06] MEDS ORDERED: predniSONE 10 MG TABLET (UD) PO SCH (10:00)
--- NOTE | 2017-02-06 13:10 | PN ---
Progress Note, Physician Chief Complaint: ECHO REPORT REVIEWED TELEMETRY ALARMS REVIEWED PATIENT STILL BRADYCARDIC NO SYMPTOMS OF DIZZINESS OR CHEST PAIN TOLERATING PO DIET - Current Medication List Current Medications: Active Medications Ampicillin Sodium/Sulbactam (Sodium 3 gm/ Sodium Chloride) 100 mls @ 200 mls/ hr IVPB Q6H-IV MIRIAM Last Admin: 02/06/17 09:57 Dose: 200 mls/hr Dextrose/Sodium Chloride (D5-Ns -) 1,000 mls @ 83 mls/hr IV ASDIR [facility] Last Admin: 02/05/17 22:35 Dose: 83 mls/hr Ketorolac Tromethamine (Toradol Injection -) 30 mg IVPUSH Q8H-IV [facility] Stop: 02/08/17 18:14 Last Admin: 02/06/17 09:57 Dose: 30 mg Ondansetron HCl (Zofran Injection) 8 mg IVPB Q6H PRN PRN Reason: NAUSEA Pantoprazole Sodium (Protonix -) 40 mg PO DAILY [facility] Last Admin: 02/06/17 09:57 Dose: 40 mg Prednisone (Deltasone -) 30 mg PO DAILY [facility] Last Admin: 02/06/17 09:57 Dose: 30 mg - Objective Vital Signs: Vital Signs Temperature 97.8 F 02/06/17 10:00 Pulse Rate 42 L 02/06/17 10:00 Respiratory Rate 22 02/06/17 10:00 Blood Pressure 153/81 02/06/17 10:00 O2 Sat by Pulse Oximetry (%) 99 02/06/17 09:00 Constitutional: Yes: No Distress Eyes: Yes: WNL HENT: Yes: WNL Neck: Yes: WNL Cardiovascular: Yes: Bradycardia Respiratory: Yes: WNL Gastrointestinal: Yes: WNL Genitourinary: Yes: WNL Musculoskeletal: Yes: WNL Extremities: Yes: WNL Edema: No Peripheral Pulses WNL: Yes Integumentary: Yes: WNL Wound/Incision: Yes: Clean/Dry Neurological: Yes: WNL ...Motor Strength: WNL Psychiatric: Yes: WNL Labs: CBC, BMP 02/04/17 06:43 02/05/17 05:35 INR, PTT INR 1.08 (0.82-1.09) 02/03/17 00:35 Problem List - Problems (1) Pharyngitis Code(s): [place]02.9 - ACUTE PHARYNGITIS, UNSPECIFIED Qualifiers: Pharyngitis/tonsillitis etiology: streptococcus Qualified Code(s): J02.0 - Streptococcal pharyngitis (2) Viral illness Code(s): B34.9 - VIRAL INFECTION, UNSPECIFIED (3) Liver mass Code(s): R16.0 - HEPATOMEGALY, NOT ELSEWHERE CLASSIFIED (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
--- NOTE | 2017-02-06 14:42 | PN ---
Progress Note (short form) - Note Progress Note: PULMONARY Denies shortness of breath, dysphagia or dysphonia Last Vital Signs Temp Pulse Resp BP Pulse Ox 97.8 F 42 L 22 153/81 99 02/06/17 10:00 02/06/17 10:00 02/06/17 10:00 02/06/17 10:00 02/06/17 09:00 Gen: NAD at rest Neck: no stridor Heart: RRR Lung: decreased breath sounds at the bases Abd: soft, nontender Ext: no edema CBC, BMP 02/04/17 06:43 02/05/17 05:35 Active Medications Ampicillin Sodium/Sulbactam (Sodium 3 gm/ Sodium Chloride) 100 mls @ 200 mls/ hr IVPB Q6H-IV [facility] Last Admin: 02/06/17 09:57 Dose: 200 mls/hr Dextrose/Sodium Chloride (D5-Ns -) 1,000 mls @ 83 mls/hr IV ASDIR [facility] Last Admin: 02/05/17 22:35 Dose: 83 mls/hr Ketorolac Tromethamine (Toradol Injection -) 30 mg IVPUSH Q8H-IV [facility]IRIAM Stop: 02/08/17 18:14 Last Admin: 02/06/17 09:57 Dose: 30 mg Ondansetron HCl (Zofran Injection) 8 mg IVPB Q6H PRN PRN Reason: NAUSEA Pantoprazole Sodium (Protonix -) 40 mg PO DAILY [facility] Last Admin: 02/06/17 09:57 Dose: 40 mg Prednisone (Deltasone -) 30 mg PO DAILY [facility] Last Admin: 02/06/17 09:57 Dose: 30 mg A/P Acute Pharyngitis HTN DM Hypothyroidism - taper off decadron - continue antibiotics - pain control - DVT prophylaxis
--- NOTE | 2017-02-06 15:52 | PN ---
Progress Note, Physician Chief Complaint: Throat pain improving History of Present Illness: This is a 41 year old female with a PMH significant for RA, HTN, HLD, DM2, and Hypothyroidism. She presented to the ER on 02/02/17 with the chief complaint of a sore throat and difficulty swallowing. This was accompanied by a head ache. EKG showed NSR with T wave abnormalities in the lateral leads. Potassium was 2.7 and WBC was noted to be 15.4. CXR was without acute infiltrates. She was diagnosed with acute pharyngitis and has improved on ABX. On 02/04/17 an EKG was performed and she was found to have marked sinus bradycardia at 43 BPM with improvement of the T wave abnormalities. Echocardiogram 02/05/17: EF 57.1% Normal LV size and function Mild to moderate RV dilatation with moderately reduced RV function Prominent RV trabeculations Moderate LA enlargement Severe right atrial dilatation Intra-atrial septal aneurysm noted Mild MR Moderate to severe TR RVSP 34.5 mmHg (this can be an underestimation secondary to Moderate to severe TR) CT scan is negative for PE - Current Medication List Current Medications: Active Medications Ampicillin Sodium/Sulbactam (Sodium 3 gm/ Sodium Chloride) 100 mls @ 200 mls/ hr IVPB Q6H-IV MIRIAM Last Admin: 02/06/17 15:11 Dose: 200 mls/hr Dextrose/Sodium Chloride (D5-Ns -) 1,000 mls @ 83 mls/hr IV ASDIR MIRIAM Last Admin: 02/05/17 22:35 Dose: 83 mls/hr Ketorolac Tromethamine (Toradol Injection -) 30 mg IVPUSH Q8H-IV MIRIAM Stop: 02/08/17 18:14 Last Admin: 02/06/17 09:57 Dose: 30 mg Ondansetron HCl (Zofran Injection) 8 mg IVPB Q6H PRN PRN Reason: NAUSEA Pantoprazole Sodium (Protonix -) 40 mg PO DAILY [facility] Last Admin: 02/06/17 09:57 Dose: 40 mg Prednisone (Deltasone -) 30 mg PO DAILY MIRIAM Last Admin: 02/06/17 09:57 Dose: 30 mg - Objective Vital Signs: Vital Signs Temperature 97.8 F 02/06/17 10:00 Pulse Rate 42 L 02/06/17 10:00 Respiratory Rate 22 02/06/17 10:00 Blood Pressure 153/81 02/06/17 10:00 O2 Sat by Pulse Oximetry (%) 99 02/06/17 09:00 Constitutional: Yes: Well Nourished, No Distress Neck: Yes: Other (No JVD) Cardiovascular: Yes: Regular Rate and Rhythm, Bradycardia, S1, S2 (2/6 HSM at apex with respiratory variation) Respiratory: Yes: CTA Bilaterally Gastrointestinal: Yes: Soft Extremities: Yes: WNL Edema: No Peripheral Pulses WNL: Yes Neurological: Yes: Oriented (A+Ox3, non focal) Labs: CBC, BMP 02/04/17 06:43 02/05/17 05:35 INR, PTT INR 1.08 (0.82-1.09) 02/03/17 00:35 Assessment/Plan 41 year old female with a PMH significant for RA, HTN, HLD, DM2, and Hypothyroidism. She presented to the ER on 02/02/17 with the chief complaint of a sore throat and difficulty swallowing. This was accompanied by a head ache. EKG showed NSR with T wave abnormalities in the lateral leads. Potassium was 2.7 and WBC was noted to be 15.4. CXR was without acute infiltrates. She was diagnosed with acute pharyngitis and has improved on ABX. On 02/04/17 an EKG was performed and she was found to have marked sinus bradycardia at 43 BPM with improvement of the T wave abnormalities. Echocardiogram 02/05/17: EF 57.1% Normal LV size and function Mild to moderate RV dilatation with moderately reduced RV function Prominent RV trabeculations Moderate LA enlargement Severe right atrial dilatation Intra-atrial septal aneurysm noted Mild MR Moderate to severe TR RVSP 34.5 mmHg (this can be an underestimation secondary to Moderate to severe TR) Right Ventricular Hypokinesis with Moderate to severe TR: CT scan is negative for PE No intervention needs to be done at this time, however she needs to be followed with at least yearly echocardiograms as an outpatient or more frequently if she develops signs or symptoms of RV failure. At such time, tricuspid valve surgery would need to be considered. Sinus Bradycardia: Etiology of the bradycardia is unclear Would send Lyme titers Would evaluate for sleep apnea as she becomes very bradycardic at night Avoid all AV loan medications The bradycardia also needs close follow up as an outpatient. She is currently not a candidate for a pacemaker because she is asymptomatic (from a bradycardia standpoint) and her heart rates augments when she is active. When she feels better, a stress echocardiogram would be helpful to document that her heart rate increases withy activity. Will follow with you
[2017-02-06] MEDS: DEXTROSE 5%-NORMAL SALINE 1,000 ML IV SCH (18:15)
[2017-02-07] MEDS ORDERED: ZOLPIDEM TARTRATE 5 MG TABLET PO ONE (01:15)
[2017-02-07] MEDS ORDERED: PT OWN MED DRAWER 7, Y5N ONE (02:13)
[2017-02-07] MEDS: AMPICILLIN NA/SULBACTAM NA 3 GM in SODIUM CHLORIDE 100 ML IVPB SCH (02:40)
[2017-02-07] MEDS: KETOROLAC TROMETHAMINE 30 MG/1 ML VIAL IVPUSH SCH (02:45)
--- NOTE | 2017-02-07 07:00 | DS ---
Physical Examination Vital Signs: Vital Signs Temperature 97.8 F 02/07/17 06:23 Pulse Rate 55 L 02/07/17 06:23 Respiratory Rate 20 02/07/17 06:23 Blood Pressure 126/58 02/07/17 06:23 O2 Sat by Pulse Oximetry (%) 99 02/06/17 21:00 Findings/Remarks: COMFORTABLE/TOLERATING PO DIET Constitutional: Yes: No Distress Eyes: Yes: WNL HENT: Yes: WNL Neck: Yes: WNL Cardiovascular: Yes: Bradycardia Respiratory: Yes: WNL Gastrointestinal: Yes: WNL Renal/: Yes: WNL Musculoskeletal: Yes: WNL Extremities: Yes: WNL Edema: No Peripheral Pulses WNL: Yes Integumentary: Yes: WNL Wound/Incision: Yes: Clean/Dry Neurological: Yes: WNL ...Motor Strength: WNL Psychiatric: Yes: WNL Labs: CBC, BMP 02/04/17 06:43 02/05/17 05:35 Discharge Summary Reason For Visit: HYPOKALEMIA,VIRAL ILLNESS,BODYACHES Current Active Problems Bradycardia (Acute) EKG abnormalities (Acute) Neoplasm (Acute) Neoplasm of liver (Acute) Pharyngitis (Acute) Viral illness (Acute) Procedures: Principal: ECHO 2D Other Procedures: CT SCAN Hospital Course: ADMITTED WITH ACUTE STREP PHARYNGITIS WITH NARROWING OF AIRWAY, ICU ADMISSION TRANSFERRED TO TELEMETRY FOR CONTINUED BRADYCARDIA. IV STEROIDS AND ANTIBIOTICS GIVEN, IMPROVED PHARYNGITIS. WORKUP FOR BRADYCARDIA OUTPATIENT. WILL NEED TO HER PMD IN 1 - 2 DAYS FOR FOLLOW UP, AND ENDOCRINE CONSULT. BRADYCARDIA WITHOUT SYMPTOMS OF DIZZINESS OR SYNCOPE, SHOULD RETURN TO ED IF THOSE SYMPTOMS DO START , DISCUSSED WITH PATIENT. Condition: Improved - Instructions Diet, Activity, Other Instructions: LOW SODIUM LOW FAT Referrals: Brooks Cisneros [Primary Care Provider] - Disposition: HOME - Home Medications Comprehensive Discharge Medication List: Ambulatory Orders Methotrexate [Mexate -] 2.5 mg PO BID 01/24/14 Zolpidem Tartrate [Ambien] 10 mg PO HS 01/24/14 Folic Acid 1 mg PO DAILY 11/25/15 Oxycodone HCl/Acetaminophen [Percocet 10-325 mg Tablet] 1 - 2 tab PO TID PRN # 10 tablet 11/25/15
[2017-02-07] MEDS ORDERED: AMOX TR/POT CLAV 875MG/125MG TABLETS (FP) PO SCH (08:00)
[2017-02-07] MEDS: PANTOPRAZOLE 40 MG TABLET (FP) PO SCH (09:22)
[2017-02-07] MEDS ORDERED: predniSONE 10 MG TABLET (UD) PO SCH (10:00)
[2017-02-07 10:27] VITALS: BP 116/60; PULSE 60; TEMP 98
--- NOTE | 2017-02-07 16:15 | CONSULT ---
Consult Consult Specialty:: endocrine Referred by:: Reason for Consultation:: thyroid - History of Present Illness Chief Complaint: hypothyroid History of Present Illness: 41 yo F admitted with throat pain hx intermittent throat infections, ocasional strep, not frequent or recent. states this infection the worst she has had, trouble with throat pain,tired weight gain - History Source History Provided By: Patient - Past Medical History ...LMP: 01/06/17 ...: No Rheumatology: Yes: Rheumatoid Arthritis Endocrine: Yes: Diabetes Mellitus - Alcohol/Substance Use Hx Alcohol Use: No - Smoking History Smoking history: Former smoker Have you smoked in the past 12 months: Yes Aproximately how many cigarettes per day: 10 If you are a former smoker, when did you quit?: 3 mos ago Home Medications - Allergies Allergies/Adverse Reactions: Allergies Allergy/AdvReac Type Severity Reaction Status Date / Time No Known Allergies Allergy Verified 07/07/16 12:51 - Home Medications Home Medications: Ambulatory Orders Methotrexate [Mexate -] 2.5 mg PO BID 01/24/14 Zolpidem Tartrate [Ambien] 10 mg PO HS 01/24/14 Folic Acid 1 mg PO DAILY 11/25/15 Oxycodone HCl/Acetaminophen [Percocet 10-325 mg Tablet] 1 - 2 tab PO TID PRN # 10 tablet 11/25/15 Amox-Tr/K Cl [Augmentin 875-125mg Tablet -] 1 tab PO BID@0800,1730 #10 tablet Pantoprazole Sodium [Protonix -] 40 mg PO DAILY #10 tab 02/07/17 Prednisone [Deltasone -] 10 mg PO BID #10 tablet 02/07/17 Review of Systems - Review of Systems Constitutional: reports: Malaise Eyes: reports: No Symptoms HENT: reports: No Symptoms, Throat Pain Neck: reports: Decreased ROM Cardiovascular: reports: No Symptoms Respiratory: reports: Cough, SOB, SOB on Exertion Gastrointestinal: reports: No Symptoms Genitourinary: reports: No Symptoms Breasts: reports: No Symptoms Reported Musculoskeletal: reports: Muscle Pain, Muscle Cramps, Muscle Weakness Integumentary: reports: No Symptoms Neurological: reports: Weakness Endocrine: reports: Unexplained Weight Gain Hematology/Lymphatic: reports: No Symptoms Psychiatric: reports: Anxiety Physical Exam Vital Signs: Vital Signs Temperature 98 F 02/07/17 09:00 Pulse Rate 60 02/07/17 09:00 Respiratory Rate 18 02/07/17 09:00 Blood Pressure 116/60 02/07/17 09:00 O2 Sat by Pulse Oximetry (%) 100 02/07/17 09:00 Constitutional: Yes: Calm Eyes: Yes: EOM Intact HENT: Yes: Normocephalic Neck: Yes: Thyromegaly Respiratory: Yes: CTA Bilaterally Gastrointestinal: Yes: Normal Bowel Sounds ...Rectal Exam: Yes: Deferred Renal/: Yes: WNL Musculoskeletal: Yes: WNL Labs: CBC, BMP 02/04/17 06:43 02/05/17 05:35 Assessment/Plan hypothyroidism callum morbid obesity Laboratory Tests 02/05/17 06:00 TSH 0.23 L Free T4 1.03 plan: check tsh free t4 as outpatient check thyroid sonogram outpatient follow up as outpatient
== END 2017-02-07 12:09 | disposition home or self-care (01) | DRG 153 ==
LOC: JER 23:07 → SUPCPDRO 23:07 → JERBED 02-03 06:49 → J4W 02-04 00:21
PROVIDERS: ADMIT Family Medicine; ATTEND Family Medicine
DX: J02.0 Streptococcal pharyngitis (principal); Z68.41 Body mass index [BMI] 40.0-44.9, adult; J36 Peritonsillar abscess; E66.01 Morbid (severe) obesity due to excess calories; E03.9 Hypothyroidism, unspecified; Z87.891 Personal history of nicotine dependence; R00.1 Bradycardia, unspecified; E87.6 Hypokalemia; B34.8 Other viral infections of unspecified site; I10 Essential (primary) hypertension; E78.5 Hyperlipidemia, unspecified; E11.9 Type 2 diabetes mellitus without complications; R94.31 Abnormal electrocardiogram [ECG] [EKG]; B95.0 Streptococcus, group A, as the cause of diseases classified elsewhere; R16.0 Hepatomegaly, not elsewhere classified; I36.1 Nonrheumatic tricuspid (valve) insufficiency
CPT/HCPCS: 36415; 70490-TC; 71010-TC; 71275-TC; 74178-TC; 76705-TC; 80048; 80053; 80061; 80074; 81003; 82550; 83721; 83735; 84439; 84443; 84484; 84703; 85025; 85027; 85379; 85610; 85651; 87040; 87070; 87077; 87086; 87430; 93005; 93010; 93306-TC; 99285-25; Q9967